=== PATIENT | female | born 1945 | race Caucasian/White ===

== ENCOUNTER 2017-02-25 18:41 | Emergency (ER) | payer OTHER ==
[2017-02-25 21:40] VITALS: BP 161/95
== END 2017-02-25 22:00 | disposition home or self-care (01) ==
LOC: ED 18:41
DX: I10 Essential (primary) hypertension (principal); M25.551 Pain in right hip; E11.9 Type 2 diabetes mellitus without complications; E78.00 Pure hypercholesterolemia, unspecified
CPT/HCPCS: J1885